=== PATIENT | female | born 1955 | race Two or more races ===

== ENCOUNTER 2025-03-12 09:58 | Emergency (ER) | payer OTHER ==
[~2025-03-12] VITALS: Ht 149.9 cm; Wt 53.1 kg
[2025-03-12] MEDS ORDERED: LIPITOR20 MG (10:11)
[2025-03-12] MEDS ORDERED: QUETIAPINE FUM400 M1 PO (10:12)
[2025-03-12] MEDS ORDERED: DRAMAMINE LESS25 MG PO (10:15)
[2025-03-12] MEDS ORDERED: hydrOXYzine PAMOATE 25 MG CAPSULE PO STA (10:52)
[2025-03-12] MEDS ORDERED: MECLIZINE HCL 25 MG TABLET PO STA (10:52)
[2025-03-12] MEDS ORDERED: MECLIZINE HCL 25 MG TABLET PO ONE (10:55)
[2025-03-12] MEDS ORDERED: hydrOXYzine PAMOATE 25 MG CAPSULE PO ONE (10:55)
[2025-03-12 11:16] LABS: BASO % 0.9 % (0.1-1.2); EOS % 2.1 % (0.7-7.0); HEMATOCRIT 40.8 % (34.1-44.9); HEMOGLOBIN 13.9 g/dL (11.2-15.7); LYMPH # 1.14 (1.18-3.74); LYMPH % 24.3 % (19.3-53.1); MEAN CORPUSCULAR HEMOGLOBIN 30.2 pg (25.6-32.2); MONO # 0.64 (0.24-0.82); NEUT # 2.75 (1.56-6.13); NEUT % 58.7 % (34.0-71.1); PLATELET COUNT 272 K/uL (163-369); RED BLOOD COUNT 4.61 M/uL (3.93-5.22); RED CELL DISTRIBUTION WIDTH 12.8 % (11.6-14.4)
[2025-03-12 11:18] LABS: MONO % 13.6 % (4.7-12.5)
[2025-03-12 11:38] LABS: PARTIAL THROMBOPLASTIN TIME 23.8 SECONDS (22.0-34.0); PROTHROMBIN TIME 10.9 SECONDS (9.0-11.5)
[2025-03-12 11:57] LABS: ALBUMIN 4.1 gm/dL (3.4-5.0); BILIRUBIN TOTAL 0.4 mg/dL (0.3-1.2); CREATININE SERUM 0.98 mg/dL (0.55-1.02); GFR 56.61; GLOBULINA 3.4 G/DL (2.4-3.5); POTASSIUM 3.86 mEq/L (3.5-5.1); TOTAL PROTEIN 7.5 gm/dL (6.4-8.2)
== END 2025-03-12 14:29 | disposition home or self-care (01) ==
LOC: ER 09:58
DX: H81.10 Benign paroxysmal vertigo, unspecified ear (principal)